=== PATIENT | male | born 1945 | race African-American/Black ===

== ENCOUNTER 2020-12-06 07:34 | Observation (INO) | payer MEDICARE ==
[2020-12-06] MEDS ORDERED: ASPIRIN EC 325 MG TAB PO NR (08:20)
[2020-12-06] MEDS ORDERED: HEPARIN/NS 5000 UNIT/500ML 1,000 ML IR ONE (08:45)
[2020-12-06 08:55] LABS: Basophils % (Auto) 0.6 % (0.0-1.8); Eosinophils # (Auto) 0.2 K/mm3 (0.0-0.4); Eosinophils % (Auto) 2.6 % (0.0-4.3); Hematocrit 38.6 % (35.5-45.6); Hemoglobin 13.4 gm/dl (11.8-15.2); Lymphocytes # (Auto) 2.1 K/mm3 (1.2-5.4); Lymphocytes % (Auto) 35.7 % (13.4-35.0); Mean Corpuscular HGB Conc 35 % (32-34); Mean Corpuscular Volume 90 fl (84-94); Monocytes # (Auto) 0.7 K/mm3 (0.0-0.8); Platelet Count 206 K/mm3 (140-440); Red Cell Distribution Width 13.2 % (13.2-15.2)
[2020-12-06] MEDS ORDERED: SODIUM CHLORIDE 0.9% 500 ML 500 ML IV SCH ×2 (09:00→23:45)
[2020-12-06 09:10] LABS: INR 0.97 (0.87-1.13)
[2020-12-06] MEDS: MIDAZOLAM 2 MG/2 ML INJ ONE ×2 (10:08→10:12)
[2020-12-06] MEDS: fentaNYL 100 MCG/2 ML INJ ONE ×2 (10:08→10:12)
[2020-12-06] MEDS: VERAPAMIL 5 MG/2 ML INJ ONE ×2 (10:09→10:19)
[2020-12-06] MEDS: HEPARIN 10,000 UNITS/10 ML VIAL ONE ×3 (10:09→10:28)
[2020-12-06] MEDS: LIDOCAINE (2%) 20 MG/1 ML VIAL 20 ML MDV INFILTRATI ONE ×2 (10:09→10:17)
[2020-12-06] MEDS: NITROGLYCERIN SYRINGE 3 ML ONE ×2 (10:10→10:19)
[2020-12-06 10:12] LABS: BUN/Creatinine Ratio 15; Blood Urea Nitrogen 16 mg/dL (9-20); Calcium 9.1 mg/dL (8.4-10.2); Hemolysis Index 2
[2020-12-06] MEDS ORDERED: ATROPINE 0.1% (1 MG/10 ML) CARDIAC SYRINGE ONE (10:30)
[2020-12-06] MEDS ORDERED: SODIUM CHLORIDE 0.9% 500 ML 0 ML ONE (10:45)
[2020-12-06] MEDS ORDERED: ALUM-MAG HYDROXIDE-SIMETHICONE 200-200-20MG/5ML ORAL LIQD 30 ML ONE (11:15)
[2020-12-06] MEDS ORDERED: PRASUGREL 10 MG TAB PO ONE (11:15)
[2020-12-06] MEDS ORDERED: HYDROcodone/ACETAMINOPHEN 5-325 MG TAB PO PRN (11:19)
--- NOTE | 2020-12-06 11:49 | Cardiac Catherization Report ---
REFERRING PHYSICIAN: Dr. Mode Aguilar INDICATION FOR PROCEDURE: The patient is a very pleasant 75-year-old gentleman who presents here for evaluation for chest pain, abnormal treadmill, followed by abnormal nuclear stress test with inferior ischemia, referred for left heart catheterization. Risks, benefits, and alternatives discussed at length prior to obtaining informed consent. PROCEDURE IN DETAIL: The patient was brought to the laboratory supervisor in a postabsorptive state, prepped and draped in sterile fashion. Cale's test in right hand was normal. A 2 mL of 2% lidocaine anesthetized the right wrist. A standard 6-Malay hydrophilic sheath used to cannulate the right radial artery via modified Seldinger technique. All exchanges performed to exchange a J-tip guidewire. JL3.5 catheter used to engage the left main. No dampening or ventricularization. Cineangiography performed in all projections. JR4 catheter was used to cross the aortic valve under ultrasonographic guidance. Left ventriculography performed. 30 KATHRYN projections via hand injections, catheter flushed. Manual pullback performed with continuous pressure monitoring. Catheter used to engage the right coronary. No dampening or ventricularization. Cineangiography performed in all projections. DATA: Aortic pressure is 130/70, LV pressure is 130, LVEDP of 15 mmHg. Left ventriculography revealed normal systolic performance with estimated ejection fraction of 55-60%. No evidence of aortic stenosis. CORONARY ANATOMY: This is a right dominant system. Right coronary is a moderate sized vessel, courses AV groove, distally bifurcates into posterior and posterolateral branches. There is a 90% proximal stenosis with a 99% high mid stenosis at its edge. EDGARD 2 flow noted. This is clearly a culprit, coincides with his symptoms and abnormal stress findings. Left main without significant disease, bifurcates into left anterior descending and left circumflex. LAD with a 50% stenosis in the mid segment. We will need to watch this over time. This includes the ostium of a diagonal, which is around 30-40% stenosed. Circumflex exhibited significant disease. At this point, we turned our attention to culprit vessel PCI. Heparin given. Abnormal ACT confirmed. The patient reloaded with aspirin. We used a JR4 guide to engage the right coronary. A [place] wire crossed the lesion without difficulty. Next, we used a 2.5 x 12 balloon to predilate the proximal portion of the lesion, unable to cross the tight 99% lesion, used a 2.0 x 12 balloon, successfully crossed the lesion, predilated at 12 for 30 seconds. Next, we were able to place 3.0 x 18 Resolute Frantz drug-eluting stent at 12 ALICIA for 30 seconds. Excellent angiographic result. Intravascular ultrasound was performed, revealed a mildly under-expanded stent. I used a 3.0 x 12 noncompliant balloon to post-dilate the entirety of the stent, well-expanded, well-apposed at this point, EDGARD 3 flow, excellent final angiographic result. No complications. The patient tolerated the procedure well. I directly supervised the administration of moderate sedation with fentanyl and Versed from 10:12 a.m. to 11:00 a.m. No immediate complications. CONCLUSIONS: 1. Severe epicardial coronary disease with culprit proximal and high mid 99% stenosis of the right coronary. Successful IVUS-guided percutaneous coronary intervention with placement of drug-eluting stent, Resolute [place] 3.0 x 18 with excellent final angiographic and ultrasonographic results. 2. Intermediate nonobstructive disease in the mid left anterior descending of approximately 50%. 3. No other obstructive disease identified. 4. Normal left ventricular systolic performance, estimated ejection fraction of 55-60%. 5. No evidence of aortic stenosis. The patient is now clinically stable, chest pain free. Standard radial care. Effient, aspirin, statin therapy. Follow up with Dr. Aguilar in the office. We will monitor him overnight. We will discuss with Dr. Aguilar as well. Discussed with family member via telephone. JOB# [id number] SBM/NTS
[2020-12-06] MEDS: METOPROLOL TARTRATE 25 MG TAB PO SCH (22:17)
[2020-12-06] MEDS ORDERED: SODIUM CHLORIDE 0.9% 250ML 250 ML IV ONE (23:43)
[2020-12-07 05:05] LABS: Basophils % (Auto) 0.4 % (0.0-1.8); Eosinophils % (Auto) 0.5 % (0.0-4.3); Hematocrit 35.6 % (35.5-45.6); Hemoglobin 12.5 gm/dl (11.8-15.2); Lymphocytes # (Auto) 1.9 K/mm3 (1.2-5.4); Lymphocytes % (Auto) 21.1 % (13.4-35.0); Mean Corpuscular HGB Conc 35 % (32-34); Mean Corpuscular Volume 90 fl (84-94); Monocytes # (Auto) 0.9 K/mm3 (0.0-0.8); Monocytes % (Auto) 9.7 % (0.0-7.3); Platelet Count 183 K/mm3 (140-440); Red Blood Count 3.95 M/mm3 (3.65-5.03); Red Cell Distribution Width 13.1 % (13.2-15.2)
[2020-12-07 05:20] LABS: Creatine Kinase MB 2.1 ng/mL (0.0-4.0)
[2020-12-07 05:21] LABS: BUN/Creatinine Ratio 18; Blood Urea Nitrogen 23 mg/dL (9-20); Calcium 9.2 mg/dL (8.4-10.2); Hemolysis Index 32
--- NOTE | 2020-12-07 08:09 | XRay Report ---
CHEST 1 VIEW INDICATION: post pci. COMPARISON: None FINDINGS: Support devices: None. Heart: Within normal limits. Mild aortic knob calcifications are noted. Lungs/Pleura: No acute air space or interstitial disease. No pneumothorax. Additional findings: None. IMPRESSION: No acute findings. Signer Name: Watson Otero Jr, MD Signed: 12/07/2020 8:04 AM Workstation Name: [id number]
[2020-12-07] MEDS ORDERED: NON-FORMULARY EACH (Lisinopril/Hydrochlorothiazide [Zestoretic 10-12.5 Mg Tablet] 1 EACH T PO SCH (10:00)
[2020-12-07] MEDS ORDERED: hydroCHLOROthiazide 12.5 MG CAP PO SCH (10:00)
[2020-12-07] MEDS ORDERED: ASPIRIN 81 MG TAB CHEW PO SCH (10:00)
[2020-12-07] MEDS ORDERED: TAMSULOSIN 0.4 MG CAP PO SCH (10:00)
[2020-12-07] MEDS ORDERED: PRASUGREL 10 MG TAB PO SCH (10:00)
[2020-12-07] MEDS ORDERED: LISINOPRIL 10 MG TAB PO SCH (10:00)
--- NOTE | 2020-12-07 10:43 | Short Stay Summary ---
Short Stay Documentation Date of service: 12/07/20 - History H&P: obtained from office - Allergies and Medications Current Medications: Allergies No Known Allergies Allergy (Unverified 12/06/20 08:19) Home Medications Medication Instructions Recorded Confirmed Last Taken Type Aspirin EC [Halfprin EC] 81 mg PO QDAY 12/06/20 12/06/20 12/05/20 History 81 mg Docosahexanoic Acid [Algal Prosperity-3 1,000 mg PO 12/06/20 12/05/20 History Dha] 1 tab Lisinopril/Hydrochlorothiazide 1 each PO DAILY 12/06/20 12/06/20 12/05/20 History [Zestoretic 10-12.5 mg Tablet] 1 tab Pravastatin Sodium [Pravastatin] 10 mg PO QHS 12/06/20 12/06/20 12/05/20 History 10 mg Tamsulosin [Flomax] 0.4 mg PO QDAY 12/06/20 12/06/20 12/05/20 History 0.4 Active Medications Hydrocodone Bitart/Acetaminophen (Hydrocodone/Acetaminophen 5-325 Mg Tab) 1 each PO Q6H PRN PRN Reason: Pain, Moderate (4-6) Aspirin (Aspirin 81 Mg Tab Chew) 81 mg PO QDAY [facility] Last Admin: 12/07/20 09:54 Dose: 81 mg Documented by: Atorvastatin Calcium (Atorvastatin 40 Mg Tab) 40 mg PO QHS [facility] Last Admin: 12/06/20 22:16 Dose: 40 mg Documented by: Hydrochlorothiazide (Hydrochlorothiazide 12.5 Mg Cap) 12.5 mg PO QDAY [facility] Last Admin: 12/07/20 09:55 Dose: 12.5 mg Documented by: Lisinopril (Lisinopril 10 Mg Tab) 10 mg PO QDAY [facility] Last Admin: 12/07/20 09:55 Dose: 10 mg Documented by: Metoprolol Tartrate (Metoprolol Tartrate 25 Mg Tab) 25 mg PO BID [facility] Last Admin: 12/06/20 22:17 Dose: 25 mg Documented by: Prasugrel (Prasugrel 10 Mg Tab) 10 mg PO QDAY [facility] Last Admin: 12/07/20 09:54 Dose: 10 mg Documented by: Tamsulosin HCl (Tamsulosin 0.4 Mg Cap) 0.4 mg PO QDAY [facility] Last Admin: 12/07/20 09:54 Dose: 0.4 mg Documented by: - Physical exam Integumentary: other ([facility] site c/d/i, no bleeding or hematoma) - Brief post op/procedure progress note Date of procedure: 12/06/20 Pre-op diagnosis: abnormal stress test Post-op diagnosis: other (CAD) Procedure: [facility] with PCI - see dictated cath report Anesthesia: local Estimated blood loss: none Condition: stable - Disposition Condition at discharge: Good Disposition: [id number] TO HOME OR SELFCARE - Discharge Diagnoses (1) CAD (coronary artery disease) Status: Chronic (2) Stented coronary artery Status: Chronic (3) HTN (hypertension) Status: Chronic (4) Hyperlipidemia Status: Chronic Short Stay Discharge Plan Activity: advance as tolerated Diet: low fat, low cholesterol, low salt Wound: open to air, keep clean and dry, per your surgeon's advice Follow up with: DAVID CONDON MD [Primary Care Provider] - 7 Days CHAGO BYERS MD [Staff Physician] - 7 Days ([facility], 12/28/2020 @ 9:45AM) Prescriptions: AtorvaSTATin [Lipitor] 40 mg PO QHS #90 tablet Prasugrel [Effient] 10 mg PO QDAY #90 tablet Metoprolol [Lopressor TAB] 25 mg PO BID #60 tablet
[2020-12-07] MEDS: METOPROLOL TARTRATE 25 MG TAB PO SCH (12:30)
[2020-12-07 16:30] VITALS: BP 136/66
== END 2020-12-07 17:55 | disposition home or self-care (01) ==
LOC: CATHLABREC 07:34 → 4A 11:19
PROVIDERS: ADMIT Internal Medicine; ATTEND Internal Medicine
DX: I25.10 Atherosclerotic heart disease of native coronary artery without angina pectoris (principal); I10 Essential (primary) hypertension; R94.39 Abnormal result of other cardiovascular function study; E78.5 Hyperlipidemia, unspecified; Z95.1 Presence of aortocoronary bypass graft; Z79.82 Long term (current) use of aspirin; Z79.899 Other long term (current) drug therapy
CPT/HCPCS: 36415; 71045; 80048; 82550; 82553; 84484; 85025; 85347; 85610; 85730; 92978; 93005; 93458; A9270; C1725; C1753; C1769; C1874; C1887; C1894; C9600; G0378; J0461; J1644; J2250; J3010; J7040; J7050; 92928; Q9967